=== PATIENT | female | born 1950 | race Caucasian/White ===

== ENCOUNTER → 2019-11-09 11:25 | Outpatient (CLI) | payer MEDICARE, SELFPAY ==
--- NOTE | ~2019-11-09 | XR_ITS ---
EXAMINATION: XR chest 2V DATE: 11/09/2019 12:08 INDICATION: Cough. TECHNIQUE: Frontal and lateral views of the chest were obtained. COMPARISON: Chest 2 views 03/14/2015 FINDINGS: The chest demonstrates clear lungs without pneumonia, pleural effusion, or pneumothorax. Th e heart size is normal. IMPRESSION: 1. No acute cardiopulmonary disease. Reviewed, dictated and finalized at location A. [place] DEPARTMENT MANAGER
== END ==
PROVIDERS: PCP Family Medicine; Visit Provider Nurse Practitioner Family
DX: F17.200 Nicotine dependence, unspecified, uncomplicated (principal); R05 Cough
CPT/HCPCS: 71046

== ENCOUNTER 2020-08-09 10:29 | Outpatient (CLI) | payer MEDICARE, SELFPAY ==
--- NOTE | ~2020-08-09 | XR_ITS ---
EXAMINATION: XR chest 2V 08/09/2020 11:07 INDICATION: Cough PROCEDURE: 2 view chest COMPARISON: 11/09/2019 FINDINGS: The lungs are clear. The cardiomediastinal silhouette is within normal limits. There are no pleural effusions. There is no pneumothorax suspected. IMPRESSION: 1: NO ACUTE CARDIOPULMONARY DISEASE. Reviewed, dictated and finalized at location B. FITTER
--- NOTE | 2020-08-09 10:50 | ECG_ITS ---
Measurements Intervals [place] Rate: 74 P: 71 PA: 135 QRS: 66 QRSD: 87 T: 58 QT: 365 QTc: 406 Interpretive Statements SINUS RHYTHM NORMAL ECG Electronically Signed On 08-09-2020 10:53:55 SAMPLES AND REPAIRS PREPARER by Valentin Little D.O.
== END 2020-08-09 10:30 | disposition home or self-care (01) ==
PROVIDERS: PCP Family Medicine; Visit Provider Nurse Practitioner Family
DX: R06.02 Shortness of breath (principal); R94.6 Abnormal results of thyroid function studies; R05 Cough; I10 Essential (primary) hypertension; R79.89 Other specified abnormal findings of blood chemistry
CPT/HCPCS: 36415; 71046; 84439; 84443; 93005

== ENCOUNTER 2020-09-12 10:49 | Outpatient (CLI) | payer MEDICARE, SELFPAY ==
--- NOTE | ~2020-09-12 | XR_ITS ---
EXAMINATION: XR chest 2V 09/12/2020 11:05 INDICATION: Cough PROCEDURE: 2 view chest COMPARISON: Comparison to multiple prior studies sequentially, with oldest reviewed study dated 05/2015. FINDINGS: The lungs are clear. The cardiomediastinal silhouette is within normal limits. There are no pleural effusions. There is no pneumothorax suspected. The lungs are hyperinflated which is consistent with, but not diagnostic of chronic obstructive pulmo nary disease. IMPRESSION: 1: NO ACUTE CARDIOPULMONARY DISEASE. Reviewed, dictated and finalized at location A. SHOP MANAGER
== END 2020-09-12 10:50 | disposition home or self-care (01) ==
PROVIDERS: PCP Family Medicine; Visit Provider Nurse Practitioner Family
DX: R05 Cough (principal)
CPT/HCPCS: 71046

== ENCOUNTER 2020-09-24 12:35 | Outpatient (CLI) | payer MEDICARE, SELFPAY ==
--- NOTE | 2020-09-24 12:54 | ECHO_ITS ---
Patient Info Name: Tu Rojas Age: 69 years : 1950 Gender: Female Ht: 65 in Wt: 160 lbs BSA: 1.84 m2 BP: 143 / 82 mmHg Technical Quality: Fair Exam Date: 09/24/2020 1:07 PM Exam Location: [facility] Patient Status: Outpatient Admit Date: 09/24/2020 Staff Ordering Physician: Clarice Sarah NP Railroad Brakeman: Gely Kang RDCS Attending Provider: Clarice Sarah NP Referring Physician: Tyrel KNAPP; Exam Type: CA echo doppler color flow Study Info Indications I10 - Essential (primary) hypertension Complete two-dimensional, color flow and Doppler transthoracic echocardiogram is performed. Summary 1. Complete two-dimensional, color flow and Doppler transthoracic echocardiogram is performed. 2. Left ventricular chamber dimension is normal. 3. Left ventricular systolic function is normal, estimated at 60-65%. 4. The left ventricular diastolic function is normal. 5. E/e' 10 is mildly elevated. 6. There is trace mitral valve regurgitation. 7. No pulmonary hypertension, estimated pulmonary arterial systolic pressure is 28 mmHg. Left Ventricle E/e' 10 is mildly elevated. Left ventricular chamber dimension is normal. Left ventricular systolic function is normal, estimated at 60-65%. The left ventricular diastolic function is normal. Right Ventricle Right ventricular chamber dimension is normal. Right ventricular systolic function is normal. Left Atria Left atrial chamber dimension is normal. Right Atria Right atrial chamber dimension is normal. Aortic Valve The aortic valve is trileaflet. There is no aortic valve stenosis. There is no aortic valve regurgitation. Pulmonic Valve There is no pulmonic regurgitation. Mitral Valve There is no mitral valve stenosis. There is trace mitral valve regurgitation. Tricuspid Valve There is no tricuspid valve regurgitation. No pulmonary hypertension, estimated pulmonary arterial systolic pressure is 28 mmHg. Pericardium/Pleural There is no pericardial effusion. Inferior Vena Cava Normal inferior vena cava with >50% collapse upon inspiration consistent with normal right atrial pressure, 5 mmHg. Aorta The aortic root size at the sinus of Valsalva is normal. Left Ventricular Outflow Tract Name Value Normal LVOT 2D LVOT Diameter 1.9 cm LVOT Doppler LVOT Peak Gradient 4 mmHg LVOT Mean Gradient 2 mmHg LVOT VTI 23 cm LVOT VTI/AV VTI Ratio 0.8 LVOT Stroke Volume 67 ml LVOT CO 3.5 l/min LVOT CI 1.9 l/min/m2 Pulmonic Valve Name Value Normal RVOT Doppler RVOT Peak Gradient 1 mmHg PV Doppler
--- NOTE | 2020-09-25 12:03 | WPDPFTINT ---
PFT Interpretation This is a pulmonary function test with pre and post-bronchodilator spirometry, plethysmography and diffusing capacity. The test was performed and results interpreted in accordance with the 2019 and 2005 ATS/ERS Task Force guidelines respectively using the Ponce/Jeanine reference equations. Findings: Spirometry: there is decreased maximal expiratory airflow at all lung volumes with a concave expiratory flow tracing. The pre bronchodilator FVC is 2.29 L, 76% predicted. The pre bronchodilator FEV1 is 1.09 L, 50% predicted. The FEV1: FVC ratio is 48%. The post bronchodilator FVC is 2.67 L, representing a 17% increase. The post bronchodilator FEV1 is 1.36 L, representing a 25% increase. Plethysmography: The total lung capacity is 5.72 L, 114% predicted. The functional residual capacity is 4.07 L, 145% predicted. The residual volume is 3.28 L, 165% predicted. Diffusing capacity: The absolute diffusion capacity is 12.7, 62% predicted. The diffusing capacity corrected for alveolar volume is 3.90, 106% predicted. Impression: There is a moderately severe obstructive abnormality with significant improvement after inhaling a single dose of albuterol. The increase in residual volume is consistent with air trapping from an obstructive abnormality. Hyperinflation is present is demonstrated by the increase in functional residual capacity and is consistent with an obstructive abnormality. The absolute diffusing capacity is mildly decreased but normalizes when corrected for alveolar volume. There are no prior studies for comparison
== END 2020-09-24 12:36 | disposition home or self-care (01) ==
PROVIDERS: PCP Family Medicine; Visit Provider Nurse Practitioner Family
DX: R06.02 Shortness of breath (principal); I10 Essential (primary) hypertension; R05 Cough; R94.2 Abnormal results of pulmonary function studies
CPT/HCPCS: 93306; 94060; 94726; 94729

== ENCOUNTER 2020-11-07 08:14 | Outpatient (CLI) | payer MEDICARE, SELFPAY ==
--- NOTE | ~2020-11-07 | CT_ITS ---
EXAMINATION:CT lung screening DATE: 11/07/2020 09:03 INDICATION: Personal history of tobacco dependence. Smoker who quit less than 1 year ago with 47 pack year history. TECHNIQUE: Computed tomography (CT) of the chest was performed without intravenous contrast. Automate d exposure control and iterative reconstruction technique were employed. The dose-length product (DLP ) was 65.56 mGy-cm. COMPARISON: None. FINDINGS: There is severe emphysema. There is mild atelectasis in right lower lobe. There is a 3 mm n odule in right lower lobe. No pleural effusion. The heart size is normal. There are coronary artery c alcifications. No pericardial effusion. There is mild thoracic spondylosis. IMPRESSION: 1. Lung-RADS category 2: Benign appearance or behavior. Continue annual screening with noncontrast lo w-dose chest CT in 12 months. Reviewed, dictated and finalized at location A. DER BRAKE LINING IMPRESSION: 1. Lung-RADS category 2: Benign appearance or behavior. Continue annual screeni ng with noncontrast low-dose chest CT in 12 months.
[2020-11-07 08:10] VITALS: PULSE 92; O2SAT 96
[2020-11-07 08:30] VITALS: PULSE 88; O2SAT 97
== END 2020-11-07 08:15 | disposition home or self-care (01) ==
LOC: ANHPFT 08:25
PROVIDERS: PCP Family Medicine; Visit Provider Internal Medicine Pulmonary Disease
DX: J44.9 Chronic obstructive pulmonary disease, unspecified (principal); Z87.891 Personal history of nicotine dependence
CPT/HCPCS: 71271; 94618

== ENCOUNTER → 2020-12-28 00:57 | Outpatient (CLI) | payer MEDICARE, SELFPAY ==
[2020-12-28 20:53] LABS: SARS-CoV-2 RNA PCR Negative
== END ==
PROVIDERS: PCP Family Medicine; Visit Provider Internal Medicine Critical Care Medicine
DX: Z01.812 Encounter for preprocedural laboratory examination (principal); Z20.822 Contact with and (suspected) exposure to COVID-19
CPT/HCPCS: C9803; U0003; U0005

== ENCOUNTER 2020-12-31 10:28 | Outpatient (CLI) | payer MEDICARE, SELFPAY ==
--- NOTE | 2021-01-13 16:28 | WPDSLEEPSTUD ---
Sleep Study Date of Study: 12/31/20 Ordering Provider: Jcarlos Rosa MD Interpreting Physician: Daxa Rico MD Sleep Study Type: Split Polysomnogram Height: 1.73 m Weight: 75.75 kg Body Mass Index: 25.4 Neck Circumference (inches): 18.5 [place]: 4 Reason for Sleep Study Loud snoring Sleep History Tu Rojas is a 70 year old female with loud snoring. It is frequently loud enough that others complain about it. She frequently has trouble sleeping with a cold. She rarely wakes up gasping for breath at night and rarely has breathing problems at night observed by others. She does not sweat excessively at night or notice her heart pounding or beating irregularly night. She rarely falls asleep during the day, never involuntarily or while driving. She does not have loss of muscle tone with strong emotion. She does not have daytime difficulties due to excessive sleepiness. She does not feel paralyzed when waking or falling asleep and does not have vivid dreamlike scenes upon awakening or falling asleep. She does not feel afraid to go to sleep. She does not have nightmares. She rarely remembers her dreams. She occasionally has racing thoughts. She occasionally has feelings of sadness, depression and anxiety. She rarely has muscular tension. She rarely notices parts of her body jerking. She does not kick at night or have crawling or aching feelings in her legs at night. She really has any kind of leg pain at night. She does not have morning jaw pain and she does not grind her teeth during sleep. She occasionally has bothered by pain during the day. She is not awakened by pain during the night. She occasionally wakes up feeling stiff in the morning with sore achy muscles. She rarely wakes up with pain in the neck and spine. Normal bedtime is 11:30 p.m. falling asleep within 20 minutes typically waking twice at night. This is for a trip to the bathroom and then she is able to return to sleep in 5-10 minutes. She wakes the morning by 8:30 a.m.. The weekend schedule is the same. She does not typically take naps in the afternoon or evening. She feels better in the afternoon compared other times of day she frequently a rake ends feeling refreshed. She rarely has daytime sleepiness or memory or concentration problems. Habits: Quit tobacco Jul 2020 after 40 +years. Caffeine all day long. Alcohol 3 drinks per week. No recreational drugs. [facility] Past Medical History Medical History (Updated 01/13/21 @ 17:49 by Daxa Rico MD) BMI (body mass index) 20.0-29.9 BMI 28.0-28.9,adult COPD (chronic obstructive pulmonary disease) Hyperlipidemia Hypertension Hypothyroidism SOB (shortness of breath) on exertion Family History Family History Mother Family history of lymphoma Father Family history of malignant neoplasm of urinary bladder Sibling Bypass graft stenosis Aortic valve disorder Hypertension Social History Social History (Updated 12/04/20 @ 10:53 by Kate Claudio CMA) Smoking packs per day: 1 Smoking cigarettes per day: 20.0 Years smoked: 40 Smoking pack-years: 40.00 Smoking status: Former smoker Tobacco type: cigarettes Second hand tobacco smoke exposure: No Smoking end date: 07/15/20 Alcohol intake: current Substance use: never 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
[2021-01-13 17:52] VITALS: BMI 25.4
== END 2020-12-31 10:29 | disposition home or self-care (01) ==
LOC: ANHCSM 10:29
PROVIDERS: PCP Family Medicine; Visit Provider Internal Medicine Pulmonary Disease
DX: G47.10 Hypersomnia, unspecified (principal); G47.33 Obstructive sleep apnea (adult) (pediatric)
CPT/HCPCS: 95811

== ENCOUNTER 2021-12-15 09:55 | Outpatient (CLI) | payer MEDICARE, SELFPAY ==
--- NOTE | ~2021-12-15 | CT_ITS ---
EXAMINATION:CT lung screening DATE: 12/15/2021 10:15 INDICATION: Personal history of nicotine dependence. Smoker who quit 1 year ago with 40 pack year his tory. TECHNIQUE: Computed tomography (CT) of the chest was performed without intravenous contrast. Automate d exposure control and iterative reconstruction technique were employed. The dose-length product (DLP ) was 79.04 mGy-cm. COMPARISON: Chest CT 11/07/2020 FINDINGS: There is mild scarring at the lung apices. There is moderate emphysema. There is a 3 mm nod ule in left upper lobe. No pleural effusion. The heart size is normal. No pericardial effusion. There is a small sliding hiatal hernia. There is mild thoracic spondylosis. IMPRESSION: 1. Lung-RADS category 2: Benign appearance or behavior. Continue annual screening with noncontrast lo w-dose chest CT in 12 months. Reviewed, dictated and finalized at location A. IMPRESSION: 1. Lung-RADS category 2: Benign appearance or behavior. Continue annual screeni ng with noncontrast low-dose chest CT in 12 months.
== END 2021-12-15 09:56 | disposition home or self-care (01) ==
LOC: ANHIMG 09:58
PROVIDERS: PCP Family Medicine; Visit Provider Internal Medicine Pulmonary Disease
DX: Z12.2 Encounter for screening for malignant neoplasm of respiratory organs (principal); Z87.891 Personal history of nicotine dependence
CPT/HCPCS: 71271

== ENCOUNTER 2022-03-06 09:43 | Outpatient (CLI) | payer MEDICARE, SELFPAY ==
[2022-03-06 10:27] LABS: Basophils Absolute Auto 0.1 K/mm3 (0.0-0.1); Basophils Percent Auto 0.6 % (0.2-1.2); Eosinophils Absolute Auto 0.2 K/mm3 (0-0.3); Hemoglobin 14.8 g/dL (12.0-15.0); Immature Granulocyte Absolute 0.03 K/mm3 (0.00-0.031); Immature Granulocyte Percent A 0.3 % (0-0.5); Lymphocytes Absolute Auto 2.48 K/mm3 (0.9-3.2); Lymphocytes Percent Auto 28.8 % (18.3-44.2); Mean Corpuscular HGB Conc 33.6 g/dl (32-36); Mean Corpuscular Hemoglobin 29.7 pg (26-34); Mean Corpuscular Volume 88.2 fl (80-100); Mean Platelet Volume 11.2 fl (7.4-10.4); Monocytes Absolute Auto 0.6 K/mm3 (0.1-0.6); Monocytes Percent Auto 6.5 % (2.6-8.5); Neutrophils Absolute Auto 5.3 K/mm3 (1.3-6.7); Neutrophils Percent Auto 61.8 % (45.5-73.1); Platelet Count Result 252 k/mm3 (150-375); Red Blood Count 4.99 M/mm3 (4.2-5.4); Red Cell Distribution Width 13.2 % (11.5-14.5); White Blood Count 8.6 K/mm3 (4.5-10.0)
[2022-03-06 10:48] LABS: Alanine Aminotransferase 24 U/L (6-35); Albumin Level 4.5 g/dL (3.5-5.1); Alkaline Phosphatase 88 U/L (38-126); Anion Gap 7 mmol/L (8-16); Aspartate Amino Transferase 29 U/L (14-36); Bilirubin,Total 0.7 mg/dL (0.2-1.3); Blood Urea Nitrogen 12 mg/dL (7-17); Carbon Dioxide 26 mmol/L (22-30); Chloride 106 mmol/L (98-107); Cholesterol 136 mg/dL (0-200); Estimated Glomerular Filt Rate > 60; Glucose 94 mg/dL (65-110); HDL Direct 54 mg/dL; Potassium 4.5 mmol/L (3.4-5.0); Sodium 139 mmol/L (137-145); Triglycerides 80 mg/dL (<150)
[2022-03-06 10:54] LABS: LDL Cholesterol Direct 53 mg/dL
== END 2022-03-06 09:44 | disposition home or self-care (01) ==
LOC: ANHLAB 09:51
PROVIDERS: PCP Family Medicine; Visit Provider Physician Assistant Medical
DX: E03.9 Hypothyroidism, unspecified (principal); E78.5 Hyperlipidemia, unspecified; I10 Essential (primary) hypertension
CPT/HCPCS: 36415; 80053; 80061; 84443; 85025

== ENCOUNTER 2022-03-25 08:08 | Outpatient (CLI) | payer MEDICARE, SELFPAY ==
--- NOTE | ~2022-03-25 | MM_ITS ---
EXAMINATION: MM screening svetlana BI w key HISTORY: Screening TECHNIQUE: Craniocaudal and mediolateral oblique 3-D tomosynthesis images were obtained and synthetic 2-D images were generated. CAD analysis was submitted and interpreted. COMPARISON: No prior mammogram is available for comparison at this institution. BREAST PARENCHYMAL COMPOSITION: There are scattered areas of fibroglandular density. FINDINGS: There is no evidence of suspicious mass, calcification, or architectural distortion to sugg est malignancy in either breast. There has been no suspicious interval change. IMPRESSION: 1. No mammographic evidence of malignancy. 2. Recommend routine screening mammography in one year. BI-RADS Category 1: Negative Reviewed, dictated and finalized at location L.
== END 2022-03-25 08:09 | disposition home or self-care (01) ==
LOC: ANHIMG 08:10
PROVIDERS: PCP Family Medicine; Visit Provider Family Medicine
DX: Z12.31 Encounter for screening mammogram for malignant neoplasm of breast (principal)
CPT/HCPCS: 77063; 77067

== ENCOUNTER 2022-04-20 05:09 | Day surgery (SDC) | payer MEDICARE, SELFPAY ==
[2022-04-02 12:44] VITALS: BMI 28.4
--- NOTE | 2022-04-19 10:26 | PM.HPGS ---
History of Present Illness History of Present Illness Consent: Risks, benefits, and alternatives have been discussed and questions answered. Patient agrees to proceed with procedure. Chief complaint: neoplasm screening Narrative: Tu Rojas is a 71 year old female Referred for colon cancer screening. This is her 1st colonoscopy Review of Systems Review of Systems: All systems reviewed & are unremarkable except as noted in HPI and below PMFSH Past Medical History Medical History BMI (body mass index) 20.0-29.9 BMI 28.0-28.9,adult BMI 30.0-30.9,adult COPD (chronic obstructive pulmonary disease) Hyperlipidemia Hypertension Hypothyroidism SOB (shortness of breath) on exertion Family History Family History Mother Family history of lymphoma Father Family history of malignant neoplasm of urinary bladder Sibling Bypass graft stenosis Aortic valve disorder Hypertension Social History Social History Smoking packs per day: 1 Smoking cigarettes per day: 20.0 Years smoked: 40 Smoking pack-years: 40.00 Smoking status: Never smoker Tobacco type: cigarettes Second hand tobacco smoke exposure: No Smoking end date: 07/15/20 Alcohol intake: current Drinks per week: 1 Substance use: never Substance use type: does not use Living arrangements: alone 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 Gender identity (if verbalized by the patient): Female Spiritual care concerns: No Meds Home Medications and Allergies Home Medications Medication Instructions Recorded Confirmed Type multivitamin,tx-minerals 1 cap PO DAILY 10/30/20 04/20/22 History (Multi-Vitamin HP/Minerals capsule) albuterol sulfate 90 mcg/actuation 1 - 2 puff inhalation Q4-6H PRN 01/27/22 04/20/22 Rx aerosol inhaler shortness of breath or wheezing #8.5 grams rosuvastatin 20 mg tablet See Rx Instructions .Route 02/13/22 04/20/22 Rx .COMPLEX #90 tabs valsartan 160 mg tablet See Rx Instructions .Route 02/13/22 04/20/22 Rx .COMPLEX #90 tabs acetaminophen 325 mg capsule 500 mg PO Q6H PRN Pain 02/23/22 04/20/22 History (Tylenol) umeclidinium 62.5 mcg-vilanterol See Rx Instructions .Route 03/10/22 04/20/22 Rx 25 mcg/actuation powdr for .COMPLEX #60 ea inhalation (Anoro Ellipta) levothyroxine 25 mcg tablet See Rx Instructions .Route 04/01/22 04/20/22 Rx .COMPLEX #30 tabs ibuprofen 400 mg tablet 200 mg PO TID PRN pain 04/02/22 04/20/22 History Allergies Allergy/AdvReac Type Severity Reaction Status Date / Time Penicillins Allergy Unknown Rash Verified 04/20/22 08:35 Exam Resp: Auscultation: clear to auscultation bilaterally Cardio: Rate: regular rate Rhythm: regular rhythm GI: GI Palp: Yes Soft to palpation and No Tenderness to palpation present (GI) Assessment and Plan Assessment and plan (1) Screening for colon cancer: Code(s): Z12.11 - Encounter for screening for malignant neoplasm of colon Status: Acute Assessment and Plan: Colonoscopy with possible biopsy or polypectomy or cautery or injection of substances.
--- NOTE | 2022-04-20 08:18 | WPDANESEPPF ---
Anes - Initial Pre Proc Eval Procedure: Operation Date: 04/20/22 09:30 Proposed Procedures p Screening Colonoscopy - Vahe Jimenez MD Date/Time: 04/20/22 08:18 Surgeon: Vahe Jimenez MD Pre Op Diagnosis: neoplasm screening Patient Data Age: 71 Gender: F Height: 1.65 m Weight: 77.5 kg Allergies Allergy/AdvReac Type Severity Reaction Status Date / Time Penicillins Allergy Unknown Rash Verified 04/20/22 08:35 Home Medications Medication Instructions Recorded Confirmed Type multivitamin,tx-minerals 1 cap PO DAILY 10/30/20 04/20/22 History (Multi-Vitamin HP/Minerals capsule) albuterol sulfate 90 mcg/actuation 1 - 2 puff inhalation Q4-6H PRN 01/27/22 04/20/22 Rx aerosol inhaler shortness of breath or wheezing #8.5 grams rosuvastatin 20 mg tablet See Rx Instructions .Route 02/13/22 04/20/22 Rx .COMPLEX #90 tabs valsartan 160 mg tablet See Rx Instructions .Route 02/13/22 04/20/22 Rx .COMPLEX #90 tabs acetaminophen 325 mg capsule 500 mg PO Q6H PRN Pain 02/23/22 04/20/22 History (Tylenol) umeclidinium 62.5 mcg-vilanterol See Rx Instructions .Route 03/10/22 04/20/22 Rx 25 mcg/actuation powdr for .COMPLEX #60 ea inhalation (Anoro Ellipta) levothyroxine 25 mcg tablet See Rx Instructions .Route 04/01/22 04/20/22 Rx .COMPLEX #30 tabs ibuprofen 400 mg tablet 200 mg PO TID PRN pain 04/02/22 04/20/22 History Patient hx anesthesia problems: none Family hx anesthesia problems: none Results Review: All pre-operative results and documents have been reviewed as part of the pre-operative evaluation. [facility] Past Medical History Medical History BMI (body mass index) 20.0-29.9 BMI 28.0-28.9,adult BMI 30.0-30.9,adult COPD (chronic obstructive pulmonary disease) Hyperlipidemia Hypertension Hypothyroidism SOB (shortness of breath) on exertion Family History Family History Mother Family history of lymphoma Father Family history of malignant neoplasm of urinary bladder Sibling Bypass graft stenosis Aortic valve disorder Hypertension Social History Social History Smoking packs per day: 1 Smoking cigarettes per day: 20.0 Years smoked: 40 Smoking pack-years: 40.00 Smoking status: Never smoker Tobacco type: cigarettes Second hand tobacco smoke exposure: No Smoking end date: 07/15/20 Alcohol intake: current Drinks per week: 1 Substance use: never Substance use type: does not use Living arrangements: alone 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 Informed Consent: The patient's anesthetic plan and its attendant risks and benefits were discussed with the patient/family/POA. Questions were solicited and answers provided to the satisfaction of the patient/family/POA.
[2022-04-20 08:25] VITALS: BP 144/74; PULSE 69; RESP 18; TEMP 36.9; O2SAT 98; BMI 28.3
[2022-04-20] MEDS: LACTATED RINGERS 1,000 ML 150 ML IV CONT (08:48)
[2022-04-20 09:31] VITALS: BP 127/68; PULSE 61; RESP 12; O2SAT 96
[2022-04-20 09:41] VITALS: BP 136/77; PULSE 55; RESP 17; O2SAT 96
[2022-04-20 09:51] VITALS: BP 123/64; PULSE 54; RESP 17; O2SAT 100
== END 2022-04-20 09:55 | disposition home or self-care (01) ==
PROVIDERS: PCP Family Medicine; Visit Provider Internal Medicine Gastroenterology
PROC: 0DJD8ZZ Inspection of Lower Intestinal Tract, Via Natural or Artificial Opening Endoscopic (ICD-10-PCS; CPT 45378; principal; 2022-04-20 09:30)
DX: Z12.11 Encounter for screening for malignant neoplasm of colon (principal); K63.5 Polyp of colon; K64.8 Other hemorrhoids; I10 Essential (primary) hypertension; E78.5 Hyperlipidemia, unspecified; E03.9 Hypothyroidism, unspecified; J44.9 Chronic obstructive pulmonary disease, unspecified; Z79.51 Long term (current) use of inhaled steroids
CPT/HCPCS: 45380; 45385; 88305; J2704; J7120

== ENCOUNTER 2022-05-19 09:06 | Outpatient (CLI) | payer MEDICARE, SELFPAY ==
--- NOTE | ~2022-05-19 | DEXA_ITS ---
Bone Density Report Name: WILBUR TRINIDAD Age: 71 Sex: Female Ethnicity: White Date of : 1950 Indication: postmenopausal; screening for osteoporosis; prior fracture; Referring Provider: KAY GARCIA Study: Bone densitometry was performed. Exam Date: May 19, 2022 Accession number: [id number] Bone Density: Region BMD T-score Z-score Classification AP Spine(L1-L4) 0.676 -3.4 -1.3 Osteoporosis Femoral Neck (Left) 0.572 -2.5 -0.7 Osteoporosis Total Hip (Left) 0.754 -1.5 -0.1 Osteopenia Femoral Neck (Right) 0.575 -2.5 -0.7 Osteoporosis Total Hip (Right) 0.726 -1.8 -0.3 Osteopenia Total Hip Mean 0.740 -1.7 -0.2 Osteopenia World Health Organization criteria for BMD impression classify patients as: Normal (T-score at or above -1.0), Osteopenia (T-score between -1.0 and -2.5), or Osteoporosis (T-score at or below -2.5). 10-year Fracture Risk: FRAX not reported because: Some T-score for Spine Total or Hip Total or Femoral Neck at or below -2.5 Clinical Information Provided by Patient: Has had a low trauma fracture Patient maximum height was 65 Menopause Age: 52 No regular weight bearing exercise Drinks caffeinated beverages Onset of menses at age 13 Number of children 3 Impression: The patient has established osteoporosis, based on the Total Spine T-score and the existence of a prior fracture. The patient has risk factors, including: previous fracture. Discussion: HIGH RISK OF FRACTURE. BONE DENSITY IS UNDESIRABLY LOW AT ONE OR MORE SKELETAL SITES, CONSISTENT WITH POSTMENOPAUSAL OSTEOPOROSIS. This patient's lowest T-score, in a patient who has previously fractured, meets the World Health Organization's (WHO) criteria for severe osteoporosis. In untreated patients, the risk of osteoporotic fracture increases approximately two-fold for each 1.0 SD decrease in T-score. Low bone density is not the only risk factor for fracture; also consider factors such as patient's age, frailty or poor health, risk of falling, risk of injury, previous osteoporotic fracture, family history of osteoporosis, cigarette smoking, low body weight, etc. Not everyone with low bone mineral density has osteoporosis; osteomalacia and other metabolic bone disorders should also be considered. Patients who have osteoporosis should be evaluated for specific diseases and conditions (secondary causes) that may cause or contribute to bone loss. The [place] [employer]ocrinologists (AACE) and National Osteoporosis Foundation (NOF) recommend pharmacologic intervention for all postmenopausal women whose T-score is in this range. The patient should follow a healthful lifestyle (good nutrition with adequate calcium and vitamin D, and appropriate weight-bearing exercise). Follow-Up: Consider a repeat BMD and Vertebral
== END 2022-05-19 09:07 | disposition home or self-care (01) ==
LOC: ANHIMG 09:07
PROVIDERS: PCP Family Medicine; Visit Provider Physician Assistant Medical
DX: Z78.0 Asymptomatic menopausal state (principal); M85.89 Other specified disorders of bone density and structure, multiple sites; M81.0 Age-related osteoporosis without current pathological fracture
CPT/HCPCS: 77080

== ENCOUNTER 2022-12-16 10:49 | Outpatient (CLI) | payer MEDICARE, SELFPAY ==
--- NOTE | ~2022-12-16 | CT_ITS ---
EXAMINATION:CT lung screening DATE: 12/16/2022 11:04 INDICATION: Lung cancer screening. Smoker who quit 2 years ago with 40 pack year history. TECHNIQUE: Computed tomography (CT) of the chest was performed without intravenous contrast. Automate d exposure control and iterative reconstruction technique were employed. The dose-length product (DLP ) was 81.59 mGy-cm. COMPARISON: Chest CT 12/15/2021 FINDINGS: There is mild scarring at the lung apices. There is moderate emphysema. There is a new 5 mm nodule in left upper lobe. There is a 3 mm nodule in left upper lobe. There is mild atelectasis in t he inferior lungs. No pleural effusion. The heart size is normal. No pericardial effusion. There is a small sliding hiatal hernia. There is mild thoracic spondylosis. IMPRESSION: 1. Lung-RADS category 3: Probably benign. Further evaluation is recommended with noncontrast low-dose chest CT in 6 months. Reviewed, dictated and finalized at location A. IMPRESSION: 1. Lung-RADS category 3: Probably benign. Further evaluation is recommended wit h noncontrast low-dose chest CT in 6 months.
== END 2022-12-16 10:50 | disposition home or self-care (01) ==
PROVIDERS: PCP Family Medicine; Visit Provider Physician Assistant
DX: Z12.2 Encounter for screening for malignant neoplasm of respiratory organs (principal); Z87.891 Personal history of nicotine dependence
CPT/HCPCS: 71271

== ENCOUNTER 2023-01-28 12:56 | Outpatient (CLI) | payer MEDICARE, SELFPAY ==
[2023-01-28 13:15] LABS: Hematocrit 43.4 % (37.0-47.0); Hemoglobin 14.5 g/dL (12.0-15.0); Mean Corpuscular HGB Conc 33.4 g/dl (32-36); Mean Corpuscular Hemoglobin 30.1 pg (26-34); Mean Platelet Volume 10.3 fl (7.4-10.4); Platelet Count Result 254 k/mm3 (150-375); Red Blood Count 4.82 M/mm3 (4.2-5.4); Red Cell Distribution Width 13.2 % (11.5-14.5)
[2023-01-28 13:31] LABS: Alanine Aminotransferase 28 U/L (6-35); Albumin Level 4.4 g/dL (3.5-5.1); Alkaline Phosphatase 66 U/L (38-126); Anion Gap 4 mmol/L (8-16); Aspartate Amino Transferase 26 U/L (14-36); Bilirubin,Total 0.5 mg/dL (0.2-1.3); Blood Urea Nitrogen 13 mg/dL (7-17); Calcium 10.6 mg/dL (8.4-10.2); Carbon Dioxide 31 mmol/L (22-30); Chloride 106 mmol/L (98-107); Cholesterol 128 mg/dL (0-200); Creatine Kinase 84 U/L (30-135); Estimated Glomerular Filt Rate > 60; Glucose 91 mg/dL (65-110); HDL Direct 62 mg/dL; Magnesium 2.1 mg/dL (1.6-2.3); Potassium 4.5 mmol/L (3.4-5.0); Sodium 141 mmol/L (137-145); Triglycerides 65 mg/dL (<150)
[2023-01-28 13:42] LABS: LDL Cholesterol Direct 49 mg/dL
== END 2023-01-28 12:57 | disposition home or self-care (01) ==
PROVIDERS: PCP Family Medicine; Visit Provider Nurse Practitioner Family
DX: I10 Essential (primary) hypertension (principal); R06.02 Shortness of breath; M79.662 Pain in left lower leg; M79.661 Pain in right lower leg
CPT/HCPCS: 36415; 80053; 80061; 82550; 83735; 84443; 85027

== ENCOUNTER 2023-03-03 08:49 | Outpatient (CLI) | payer MEDICARE, SELFPAY ==
[2023-03-03 09:28] LABS: Anion Gap 5 mmol/L (8-16); Blood Urea Nitrogen 15 mg/dL (7-17); Calcium 10.3 mg/dL (8.4-10.2); Carbon Dioxide 30 mmol/L (22-30); Chloride 105 mmol/L (98-107); Estimated Glomerular Filt Rate > 60; Glucose 99 mg/dL (65-110); Potassium 4.2 mmol/L (3.4-5.0); Sodium 140 mmol/L (137-145)
== END 2023-03-03 08:50 | disposition home or self-care (01) ==
LOC: ANHLAB 08:50
PROVIDERS: PCP Family Medicine; Visit Provider Nurse Practitioner Family
DX: E83.52 Hypercalcemia (principal)
CPT/HCPCS: 36415; 80048

== ENCOUNTER 2023-06-16 09:15 | Outpatient (CLI) | payer MEDICARE, SELFPAY ==
--- NOTE | ~2023-06-16 | MM_ITS ---
EXAMINATION: MM screening svetlana BI w key HISTORY: Screening mammogram TECHNIQUE: Craniocaudal and mediolateral oblique 3-D tomosynthesis images were obtained and synthetic 2-D images were generated. Bilateral rotated lateral CC views. ...CAD analysis was submitted and int erpreted. COMPARISON: 03/25/2022 bilateral screening mammogram examination BREAST PARENCHYMAL COMPOSITION: There are scattered areas of fibroglandular density. FINDINGS: There is no evidence of suspicious mass, calcification, or architectural distortion to sugg est malignancy in either breast. There has been no suspicious interval change. IMPRESSION: 1. No mammographic evidence of malignancy. 2. Recommend routine screening mammography in one year. BI-RADS Category 1: Negative Reviewed, dictated and finalized at location A.
[2023-06-16 10:29] LABS: Anion Gap 5 mmol/L (8-16); Blood Urea Nitrogen 11 mg/dL (7-17); Calcium 10.7 mg/dL (8.4-10.2); Carbon Dioxide 29 mmol/L (22-30); Chloride 104 mmol/L (98-107); Estimated Glomerular Filt Rate > 60; Glucose 101 mg/dL (65-110); Potassium 3.6 mmol/L (3.4-5.0); Sodium 138 mmol/L (137-145)
== END 2023-06-16 09:16 | disposition home or self-care (01) ==
LOC: ANHIMG 09:17
PROVIDERS: PCP Family Medicine; Referring Provider Nurse Practitioner Family; Visit Provider Family Medicine
DX: Z12.31 Encounter for screening mammogram for malignant neoplasm of breast (principal); E83.52 Hypercalcemia
CPT/HCPCS: 36415; 77063; 77067; 80048

== ENCOUNTER 2023-06-29 13:25 | Outpatient (CLI) | payer MEDICARE, SELFPAY ==
--- NOTE | ~2023-06-29 | CT_ITS ---
EXAMINATION:CT diagnostic chest wo con DATE: 06/29/2023 14:24 INDICATION: Solitary pulmonary nodule. TECHNIQUE: Computed tomography (CT) of the chest was performed without intravenous contrast. Automate d exposure control and iterative reconstruction technique were employed. The dose-length product (DLP ) was 65.90 mGy-cm. COMPARISON: Chest CT 12/16/2022 FINDINGS: There is mild scarring at the lung apices. There is moderate emphysema. There is mild atele ctasis bilaterally. There are multiple nodules scattered in the lungs measuring up to 4 mm, some of w hich are new. No pleural effusion. The heart size is normal. No pericardial effusion. There is mild t horacic spondylosis. IMPRESSION: 1. Lung-RADS category 3: Probably benign. Further evaluation is recommended with noncontrast low-dose chest CT in 6 months. Reviewed, dictated and finalized at location E. IMPRESSION: 1. Lung-RADS category 3: Probably benign. Further evaluation is recommended wit h noncontrast low-dose chest CT in 6 months.
== END 2023-06-29 13:26 | disposition home or self-care (01) ==
PROVIDERS: PCP Family Medicine; Visit Provider Physician Assistant
DX: R91.1 Solitary pulmonary nodule (principal)
CPT/HCPCS: 71250

== ENCOUNTER 2023-07-08 10:04 | Outpatient (CLI) | payer MEDICARE, SELFPAY ==
--- NOTE | ~2023-07-08 | XR_ITS ---
XR hip RT 2V w AP pelvis DATE: 07/08/2023 10:34 INDICATION: Right hip pain for a year TECHNIQUE: AP pelvis. AP and lateral views of right hip. COMPARISON: None FINDINGS: There is moderate right hip osteoarthritis. Degenerative cyst formation at the superior rig ht acetabulum. Mild spurring of the right hip joint. The pubic symphysis and sacroiliac joints are intact. No pelvic fracture or bone destruction is detected. No fracture or dislocation, avascular necrosis or bone destruction of either hip is detected. IMPRESSION: Moderate right hip osteoarthritis Reviewed, dictated and finalized at location L.
[2023-07-08 12:52] LABS: Rheumatoid Factor < 12.0 IU/ML (<12)
[2023-07-10 13:14] LABS: Ionized Calcium 5.9 mg/dL (4.7-5.5)
[2023-07-11 12:49] LABS: ANA Cascade Screen Negative (Negative)
== END 2023-07-08 10:05 | disposition home or self-care (01) ==
PROVIDERS: PCP Family Medicine; Visit Provider Physician Assistant Medical
DX: E83.52 Hypercalcemia (principal); M79.10 Myalgia, unspecified site; Z82.69 Family history of other diseases of the musculoskeletal system and connective tissue; G89.29 Other chronic pain; M25.551 Pain in right hip; M16.11 Unilateral primary osteoarthritis, right hip
CPT/HCPCS: 36415; 73502; 82330; 83970; 86038; 86225; 86235; 86364; 86430

== ENCOUNTER 2023-10-25 08:33 | Outpatient (CLI) | payer MEDICARE, SELFPAY ==
--- NOTE | ~2023-10-25 | NM_ITS ---
EXAMINATION: NM parathyroid imaging w spect DATE: 10/25/2023 12:45 INDICATION: Hyperparathyroidism TECHNIQUE: T1 mCi Tc99m sestamibi (Cardiolite) was administered by intravenous route. Anterior images of the neck were obtained at 10 minutes and 2 hours. Additional 3 plane delayed SPECT images the nec k and upper chest were obtained. COMPARISON: None. FINDINGS: There is prominent asymmetry to the thyroid uptake on the immediate scintigrams, significantly higher in the right thyroid lobe which also appears larger in medial collateral dimension than the left thy roid lobe. There is a similar pattern of relatively higher activity at the right thyroid lobe relativ e to the left on the delayed scintigrams. The uptake has however significantly decreased in both lobe s when compared with the submandibular glands. No foci of peripherally higher persistent activity in the area of the thyroid or mediastinum to suggest parathyroid adenoma. IMPRESSION: 1: Larger and significantly greater degree of diffuse activity at the right thyroid lobe relative to the left, with activity in both lobes significantly decreasing to a significantly greater degree when compared with the submandibular glands on the delayed imaging. There is of indeterminate etiology as the bilateral globes appear relatively symmetric on the CT from 06/29/2023. Consider thyroid ultraso und for correlation. 2. No foci demonstrating a greater degree of activity retention to suggest parathyroid adenoma. Reviewed, dictated and finalized at location A. ME TAX RETURN PREPARER IMPRESSION: 1: Larger and significantly greater degree of diffuse activity at the right thy roid lobe relative to the left, with activity in both lobes significantly decre asing to a significantly greater degree when compared with the submandibular gl ands on the delayed imaging. There is of indeterminate etiology as the bilatera l globes appear relatively symmetric on the CT from 06/29/2023. Consider thyroi d ultrasound for correlation. 2. No foci demonstrating a greater degree of activity retention to suggest para thyroid adenoma.
[2023-10-25 10:07] LABS: Alanine Aminotransferase 31 U/L (6-35); Albumin Level 4.7 g/dL (3.5-5.1); Alkaline Phosphatase 116 U/L (38-126); Anion Gap 3 mmol/L (8-16); Aspartate Amino Transferase 31 U/L (14-36); Bilirubin,Total 0.7 mg/dL (0.2-1.3); Blood Urea Nitrogen 16 mg/dL (7-17); Calcium 11.9 mg/dL (8.4-10.2); Carbon Dioxide 30 mmol/L (22-30); Chloride 103 mmol/L (98-107); Estimated Glomerular Filt Rate > 60; Glucose 91 mg/dL (65-110); Magnesium 2.2 mg/dL (1.6-2.3); Phosphorus 2.9 mg/dL (2.5-4.5); Potassium 4.1 mmol/L (3.4-5.0); Sodium 136 mmol/L (137-145)
[2023-10-25 10:19] LABS: Parathyroid Intact 192.3 pg/mL (7.5-53.5)
[2023-10-25 10:31] LABS: Free T4 Free Thyroxine 0.99 ng/mL (0.78-2.19); Vitamin D 25 Hydroxy 53.7 ng/mL
[2023-10-27 15:19] LABS: Ionized Calcium 5.9 mg/dL (4.7-5.5)
== END 2023-10-25 08:34 | disposition home or self-care (01) ==
PROVIDERS: PCP Family Medicine; Visit Provider Internal Medicine
DX: E03.9 Hypothyroidism, unspecified (principal); M81.0 Age-related osteoporosis without current pathological fracture; R79.89 Other specified abnormal findings of blood chemistry; I10 Essential (primary) hypertension
CPT/HCPCS: 36415; 78071; 80053; 82306; 82330; 83735; 83970; 84100; 84439; 84443; A9500

== ENCOUNTER 2023-10-27 10:51 | Outpatient (CLI) | payer MEDICARE, SELFPAY ==
[2023-11-02 05:57] LABS: Total Volume 2800 mL; Urine Calcium 14.9 mg/dL
== END 2023-10-27 10:52 | disposition home or self-care (01) ==
PROVIDERS: PCP Family Medicine; Visit Provider Internal Medicine
DX: R79.89 Other specified abnormal findings of blood chemistry (principal); E03.9 Hypothyroidism, unspecified; M81.0 Age-related osteoporosis without current pathological fracture
CPT/HCPCS: 82340

== ENCOUNTER 2023-12-06 07:45 | Outpatient (CLI) | payer MEDICARE, SELFPAY ==
--- NOTE | ~2023-12-06 | DEXA_ITS ---
Bone Density Report Name: WILBUR TRINIDAD Age: 73 Sex: Female Ethnicity: White Date of : 1950 Indication: postmenopausal osteoporosis; hyperparathyroidism; asthma or emphysema; secondary osteoporosis; Referring Provider: KAY GARCIA Study: Bone densitometry was performed. Exam Date: December 06, 2023 Accession number: [id number] Bone Density: Region BMD T-score Z-score Classification AP Spine(L1-L4) 0.630 -3.8 -1.6 Osteoporosis Femoral Neck (Left) 0.602 -2.2 -0.4 Osteopenia Total Hip (Left) 0.713 -1.9 -0.3 Osteopenia Femoral Neck (Right) 0.550 -2.7 -0.8 Osteoporosis Total Hip (Right) 0.670 -2.2 -0.7 Osteopenia Total Hip Mean 0.692 -2.1 -0.5 Osteopenia World Health Organization criteria for BMD impression classify patients as: Normal (T-score at or above -1.0), Osteopenia (T-score between -1.0 and -2.5), or Osteoporosis (T-score at or below -2.5). 10-year Fracture Risk: FRAX not reported because: Some T-score for Spine Total or Hip Total or Femoral Neck at or below -2.5 Previous Exams: Region Exam Age BMD T-score BMD Change BMD Change Date g/cm2 vs Baseline vs Previous AP Spine (L1-L4) 12/06/2023 73 0.630 -3.8 -0.045 (-6.7%) -0.045 (-6.7%) 05/19/2022 71 0.676 -3.4 Total Hip(Left) 12/06/2023 73 0.713 -1.9 -0.040 (-5.4%) -0.040 (-5.4%) 05/19/2022 71 0.754 -1.5 Total Hip(Right) 12/06/2023 73 0.670 -2.2 -0.056 (-7.7%) -0.056 (-7.7%) 05/19/2022 71 0.726 -1.8 *Denotes significance at 95% confidence level, LSC for AP Spine = 0.022 g/cm2, LSC for Total Hip = 0.027 g/cm2 # Denotes dissimilar scan types or analysis methods Clinical Information Provided by Patient: Has secondary osteoporosis Has the following medical conditions: Asthma or Emphysema, Hyperparathyroidism Patient maximum height was 65.5 Menopause Age: 52 Drinks caffeinated beverages Onset of menses at age 14 Number of children 3 Impression: The patient has osteoporosis, based on the Total Spine T-score. No significant bone loss was observed. Discussion: INCREASED RISK OF FRACTURE. BONE DENSITY IS UNDESIRABLY LOW AT ONE OR MORE SKELETAL SITES, CONSISTENT WITH POSTMENOPAUSAL OSTEOPOROSIS. This patient's lowest T-score meets the World Health Organization's (WHO) criteria for osteoporosis at one or more sites (T-score -2.5 or below). In untreated patients, the risk of osteoporotic fracture increases approximately two-fold for each 1.0 SD decrease in
== END 2023-12-06 07:46 | disposition home or self-care (01) ==
LOC: ANHIMG 07:46
PROVIDERS: PCP Family Medicine; Visit Provider Physician Assistant Medical
DX: Z78.0 Asymptomatic menopausal state (principal); M85.89 Other specified disorders of bone density and structure, multiple sites; M81.0 Age-related osteoporosis without current pathological fracture
CPT/HCPCS: 77080

== ENCOUNTER 2023-12-27 13:38 | Outpatient (CLI) | payer MEDICARE, SELFPAY ==
--- NOTE | ~2023-12-27 | CT_ITS ---
EXAMINATION:CT diagnostic chest wo con DATE: 12/27/2023 13:50 INDICATION: Solitary pulmonary nodule. TECHNIQUE: Computed tomography (CT) of the chest was performed without intravenous contrast. Automate d exposure control and iterative reconstruction technique were employed. The dose-length product (DLP ) was 69.23 mGy-cm. COMPARISON: Chest CT 06/29/2023 FINDINGS: There is moderate emphysema. There are a few nodules in the lungs measuring up to 3 mm. The re is mild atelectasis bilaterally. No pleural effusion. The heart size is normal. No pericardial eff usion. There is a small sliding hiatal hernia. There is moderate thoracic spondylosis. There is mild chronic anterior wedging of multiple vertebral bodies. IMPRESSION: 1. Lung-RADS category 2: Benign appearance or behavior. Continue annual screening with noncontrast lo w-dose chest CT in 12 months. Reviewed, dictated and finalized at location E. IMPRESSION: 1. Lung-RADS category 2: Benign appearance or behavior. Continue annual screeni ng with noncontrast low-dose chest CT in 12 months.
== END 2023-12-27 13:39 | disposition home or self-care (01) ==
LOC: ANHIMG 13:38
PROVIDERS: PCP Family Medicine; Visit Provider Physician Assistant
DX: R91.1 Solitary pulmonary nodule (principal)
CPT/HCPCS: 71250

== ENCOUNTER 2024-02-04 10:30 | Outpatient (CLI) | payer MEDICARE, SELFPAY ==
[2024-02-04 11:09] LABS: Alanine Aminotransferase 25 U/L (6-35); Albumin Level 4.8 g/dL (3.5-5.1); Alkaline Phosphatase 143 U/L (38-126); Anion Gap 8 mmol/L (4-12); Aspartate Amino Transferase 27 U/L (14-36); Bilirubin,Total 0.7 mg/dL (0.2-1.3); Blood Urea Nitrogen 17 mg/dL (7-17); Calcium 9.5 mg/dL (8.4-10.2); Carbon Dioxide 25 mmol/L (22-30); Chloride 106 mmol/L (98-107); Estimated Glomerular Filt Rate > 60; Glucose 107 mg/dL (65-110); Phosphorus 4.5 mg/dL (2.5-4.5); Potassium 4.7 mmol/L (3.4-5.0); Sodium 139 mmol/L (137-145)
[2024-02-04 11:30] LABS: Parathyroid Intact 36.3 pg/mL (7.5-53.5)
[2024-02-04 11:53] LABS: Free T4 Free Thyroxine 0.97 ng/mL (0.78-2.19); Vitamin D 25 Hydroxy 41.6 ng/mL
== END 2024-02-04 10:31 | disposition home or self-care (01) ==
LOC: ANHLAB 10:34
PROVIDERS: PCP Family Medicine; Visit Provider Internal Medicine
DX: E21.0 Primary hyperparathyroidism (principal); I10 Essential (primary) hypertension; M81.0 Age-related osteoporosis without current pathological fracture; Z90.89 Acquired absence of other organs; Z98.890 Other specified postprocedural states
CPT/HCPCS: 36415; 80053; 82306; 82330; 83735; 83970; 84100; 84439; 84443

== ENCOUNTER 2024-07-13 13:20 | Outpatient (CLI) | payer MEDICARE, SELFPAY ==
--- NOTE | ~2024-07-13 | XR_ITS ---
EXAMINATION: XR lg joint inject/asp w image DATE: 07/13/2024 14:10 INDICATION: Right hip arthritis. TECHNIQUE: A time-out was performed to verify the patient's name, date of , and procedure to b e performed. The procedure including the risks, benefits, and alternatives was discussed with the pat ient. Risks discussed included bleeding and infection. The patient understood the risks and agreed to proceed. The skin overlying the right hip joint was prepped and draped in usual sterile fashion. A nesthetic was administered with 1% lidocaine subcutaneously. A 22 G needle was advanced under fluoro scopic guidance into the joint. Subsequently, injectate consisting of 2 mL 0.5% bupivacaine and 1 mL 80 mg/mL Depo-Medrol was instilled. The needle was removed and the entry site was cleaned and dresse d. There were no immediate complications. Fluoroscopy exposure time was 0.0 minutes. The total numbe r of images was 1. FINDINGS: Real-time fluoroscopy demonstrates the needle in the right hip joint. Patient's pain prior to procedure:2/10. Patient's pain following the procedure: 2/10. IMPRESSION: 1. Fluoroscopy guided right hip joint injection of local anesthetic and steroid. Reviewed, dictated and finalized at location A. MAKER IMPRESSION: 1. Fluoroscopy guided right hip joint injection of local anesthetic and steroid .
== END 2024-07-13 13:21 | disposition home or self-care (01) ==
PROVIDERS: PCP Family Medicine; Visit Provider Nurse Practitioner Family
DX: M16.11 Unilateral primary osteoarthritis, right hip (principal)
CPT/HCPCS: 20610; 77002; J1010

== ENCOUNTER 2024-08-15 13:00 | Outpatient (CLI) | payer MEDICARE, SELFPAY ==
[2024-08-15 14:42] LABS: Alanine Aminotransferase 27 U/L (6-35); Albumin Level 4.6 g/dL (3.5-5.1); Alkaline Phosphatase 74 U/L (38-126); Anion Gap 3 mmol/L (4-12); Aspartate Amino Transferase 30 U/L (14-36); Bilirubin,Total 0.7 mg/dL (0.2-1.3); Blood Urea Nitrogen 14 mg/dL (7-17); Calcium 9.1 mg/dL (8.4-10.2); Carbon Dioxide 29 mmol/L (22-30); Chloride 107 mmol/L (98-107); Estimated Glomerular Filt Rate > 60; Glucose 81 mg/dL (65-110); Magnesium 2.1 mg/dL (1.6-2.3); Phosphorus 3.3 mg/dL (2.5-4.5); Sodium 139 mmol/L (137-145)
[2024-08-15 14:52] LABS: Parathyroid Intact 28.6 pg/mL (14.5-75.2)
[2024-08-15 15:14] LABS: Free T4 Free Thyroxine 1.08 ng/dL (0.78-2.19); Vitamin D 25 Hydroxy 48.5 ng/mL
[2024-08-16 17:26] LABS: Cholesterol 144 mg/dL (0-200); HDL Direct 69 mg/dL; Triglycerides 65 mg/dL (<150)
[2024-08-16 17:30] LABS: LDL Cholesterol Direct 49 mg/dL
== END 2024-08-15 13:01 | disposition home or self-care (01) ==
LOC: ANHLAB 13:01
PROVIDERS: PCP Family Medicine; Visit Provider Internal Medicine
DX: E03.9 Hypothyroidism, unspecified (principal); E21.0 Primary hyperparathyroidism; R91.1 Solitary pulmonary nodule; E78.5 Hyperlipidemia, unspecified; Z98.890 Other specified postprocedural states
CPT/HCPCS: 36415; 80053; 80061; 82306; 83735; 83970; 84100; 84439; 84443; 84681

== ENCOUNTER 2024-08-22 12:49 | Outpatient (CLI) | payer MEDICARE, SELFPAY | END 2024-08-22 12:50 | disposition home or self-care (01) | LOC: ANHAUDASC 12:50 | PROVIDERS: PCP Family Medicine; Visit Provider Nurse Practitioner Family | DX: H90.3 Sensorineural hearing loss, bilateral (principal); H93.13 Tinnitus, bilateral | CPT/HCPCS: 92557; 92567 ==

== ENCOUNTER 2024-08-23 14:41 | Outpatient (CLI) | payer MEDICARE, SELFPAY ==
--- NOTE | ~2024-08-23 | MM_ITS ---
EXAMINATION: MM screening svetlana BI w key HISTORY: Screening TECHNIQUE: Craniocaudal and mediolateral oblique 3-D tomosynthesis images were obtained and synthetic 2-D images were generated. CAD analysis was submitted and interpreted. COMPARISON: Comparison to multiple prior studies sequentially, with oldest reviewed study dated 03/25. BREAST PARENCHYMAL COMPOSITION: Not dense: There are scattered areas of fibroglandular density. FINDINGS: There is no evidence of suspicious mass, calcification, or architectural distortion to sugg est malignancy in either breast. There has been no suspicious interval change. IMPRESSION: 1. No mammographic evidence of malignancy. 2. Recommend routine screening mammography in one year. BI-RADS Category 1: Negative Reviewed, dictated and finalized at location B. ER MECHANIC
== END 2024-08-23 14:42 | disposition home or self-care (01) ==
LOC: ANHIMG 14:42
PROVIDERS: PCP Family Medicine; Visit Provider Family Medicine
DX: Z12.31 Encounter for screening mammogram for malignant neoplasm of breast (principal)
CPT/HCPCS: 77063; 77067

== ENCOUNTER 2024-12-05 09:12 | Outpatient (CLI) | payer MEDICARE, SELFPAY ==
--- NOTE | ~2024-12-05 | CT_ITS ---
CT Scan of the Chest without Contrast: Clinical Indication: Lung cancer screening, nicotine dependence Technique: Contiguous sections were acquired throughout the chest without intravenous contrast. Dose reduction technique was used on this scan by utilizing automated exposure control and iterative recon struction technique. The dose-length product (DLP) was 67.01 mGy-cm. COMPARISON: 12/27/2023 Findings: There is no evidence of any significant mediastinal, hilar or axillary lymphadenopathy. The mediastin al soft tissues appear normal. There is no evidence of pleural or pericardial effusion. The lungs are clear. No pulmonary nodules or infiltrates are noted. Moderate to advanced emphysema pr esent. Images through the upper abdomen reveal no abnormalities. Impression: Lung RADS 1: Negative. 12 month follow-up screening CT advised. Moderate to advanced emphysema. Reviewed, dictated and finalized at [facility]. Impression: Lung RADS 1: Negative. 12 month follow-up screening CT advised. Moderate to advanced emphysema.
--- OUTSIDE RECORDS SUMMARY | 2024-12-05 09:45 | XMS_ITS | Clinical Summary ---
Author Organization [facility] Address [address] [place] [address] Care Team Providers Care Composing Room Machinist Apprentice Name Role Phone Curtis Alatorre MD Primary Care Provider [phone] Allergies Active Allergy Reactions Criticality Noted Date Comments Penicillins Itching,Rash,Hives,Swelling High 975 Active Problems Problem Noted Date Diagnosed Date Osteoporosis 09/19/2024 Encounters Date Type Department Care Team Description 11/20/2024 10:23 AM CDT - 11/20/2024 10:50 AM CDT Hospital Encounter [facility] [address] [place] [address] Lai Garcia MD Discharge Disposition: Home or Self Care (Routine Discharge) 11/20/2024 Travel 10/23/2024 10:49 AM HARP MAKER - 10/23/2024 11:30 AM HARP MAKER Hospital Encounter [facility] [id number] [place] [id number] Lai Garcia MD Discharge Disposition: Home or Self Care (Routine Discharge) 10/23/2024 Travel 09/26/2024 10:46 AM HARP MAKER - 09/26/2024 12:15 PM HARP MAKER Hospital Encounter [facility] [id number] [place] [address] Lai Garcia MD Discharge Disposition: Home or Self Care (Routine Discharge) 09/26/2024 Travel 09/19/2024 Orders Only [address] [address] Wild Simms MD 09/19/2024 Therapy Plan [facility] [address] [place] [address] Lai Garcia MD from Last 3 Months Social History Tobacco Use Types Packs/Day Years Used Date Smoking Tobacco: Never Assessed Comments Unknown Sex and Gender Information Value Date Recorded Sex Assigned at Female 09/26/2024 10:38 AM HARP MAKER Legal Sex Female 7:38 AM HARP MAKER Gender Identity Not on file Sexual Orientation Not on file Last Filed Vital Signs Vital Sign Reading Time Taken Comments Blood Pressure 167/68 10/23/2024 10:58 AM HARP MAKER Pulse 66 10/23/2024 10:58 AM HARP MAKER Temperature 36.6 C (97.9 F) 11/20/2024 10:30 AM CDT Respiratory Rate 16 10/23/2024 10:58 AM HARP MAKER Oxygen Saturation 100% 10/23/2024 10:58 AM HARP MAKER Inhaled Oxygen Concentration - - Weight - - Height - - Body Mass Index - - Plan of Treatment Upcoming Encounters Date Type Department Care Team (Late st Contact Info) Description 12/22/2024 10:30 AM CDT Appointment [facility] [address] [place] [address] Lai Garcia MD [address] [place] [address] Health Maintenance Due Date Last Done Comments Colorectal Cancer Screening Colonoscopy (10 Years) 1950 Hepatitis C 1970 DTaP, Tdap and Td Vaccines (1 - Tdap) 1971 Mammogram Screening 1992 Zoster Vaccines (1 of 2) 2002 Annual Medicare Wellness Visit 2017 Dexa Scan (General) 2017 Pneumococcal Vaccine: 65+ Years (1 of 1 - PCV) 2017 PHQ-2 (Physician [place]) 09/06/2024 COVID-19 Vaccine ( season) 2024 05/24/2024, 06/14/2023, 05/20/2022, Additional history exists RSV Immunization or 60+ Years (1 - 1-dose 75+ series) 2027 Meningococcal B Vaccine Aged Out No l onger eligible based on patient's age to complete this topic Meningococcal Vaccine Aged Out No julia vin eligible based on patient's age to complete this topic RSV Immunizations Under 20 Months Aged Out No longer eligible based on patient's age to complete this topic Insurance MEDICARE AETNA Care Teams Composing Room Machinist Apprentice Relationship Specialty Start Date End Date Curtis Alatorre MD [address] [place] [address] PCP - General 09/23/24
--- OUTSIDE RECORDS SUMMARY | 2024-12-05 09:45 | XMS_ITS | Clinical Summary ---
Author Organization [email or web address] Address [address] [place] [address] Care Team Providers Care Dust Sampler Name Role Phone Curtis Alatorre MD Primary Care Provider [phone] Source Comments [email or web address],non-owned Affiliates and Associated Physician Practices is amultiple site organization consisting of ambulatory clinics and hospital sitesin [place], [place], [place] and [place]. This disclosure is being madepursuant to the Care Everywhere program and may not contain all information available regarding this patient. Last updated 18.[email or web address] Allergies Active Allergy Reactions Criticality Noted Date Comments Penicillins Skin Reactions,Swelling,Urticaria High 0 09/06/1974 Medications * Be aware that medications may not be up to date on this document. Alwaysverify current medications with the patient. Medication Sig Dispensed Refills Start Date End Date Status levothyroxine (Synthroid) 25 MCG tablet Take 1 (one) tablet by mouth once daily 10/27/2023 Active rosuvastatin (Crestor) 20 MG tablet Take 1 (one) tablet by mouth once daily 11/12/2023 Active umeclidinium-vilant rob (Anoro Ellipta) 62.5-25 MCG/ACT inhaler Inhale 1 (one) puff by mouth as directed 10/18/2019 Active valsartan (Diovan) 160 MG tablet Take 1 (one) tablet by mouth once daily 11/11/2023 Active albuterol HFA (Proventil; Ventolin; Proair) 108 (90 Base) MCG/ACT inhaler Inhale 2 (two) puffs by mouth every 4 hours as needed for Shortness of Breath 01/26/2024 Active acetaminophen (Tylenol) 325 MG tablet Take 1 (one) tablet by mouth every 4 hours as needed for Fever or Pain Maximum allowable Acetaminophen amount = 4 Grams (4000 mg) / 24 hours. Active ibuprofen (Motrin) 200 MG tablet Take 1 (one) tablet by mouth every 6 hours as needed for Pain Active Active Problems Problem Noted Date Diagnosed Date Primary hyperparathyroidism 12/15/2023 Immunizations Name Administration Dates Next Due INFLUENZA VACCINE, ADJUVANTE D, QUADR. (FLUAD QUADRIVALENT; 65Y+) (AIIV4) 06/14/2023,05/08/2020 INFLUENZA VACCINE, CELL CULT URE, QUADR. (FLUCELVAX QUADRIVALENT; 6MO+), 0.5 ML (CCIIV4) 06/20/2019 INFLUENZA VACCINE, HIGH-DOSE , QUADR. (FLUZONE HIGH-DOSE QUADRIVALENT; 65Y+), 0.7 ML (HD-IIV4) 05/20/2022,05/19/2021 INFLUENZA VACCINE, HIGH-DOSE , TRIV. (FLUZONE HIGH-DOSE TRIVALENT; 65Y+) (HD-IIV3) 07/15/2018 Social History Tobacco Use Types Packs/Day Years Used Date Smoking Tobacco: Former Cigarettes 0.5 40 1 981 - 2020 Smokeless Tobacco: Never Tobacco Cessation:Counseling Given: Not Answered Alcohol Use Standard Drinks/Week Comments Not Currently 0 (1 standard drink = 0.6 oz pur e alcohol) AUDIT-C Answer Date Recorded Q1: How often do you have a drink containing alc ohol? Never 01/20/2024 Average Number of Drinks Not on file 024 Frequency of Binge Drinking Not on file 01/04 Sex and Gender Information Value Date Recorded Sex Assigned at Not on file Gender Identity Not on file Sexual Orientation Not on file Last Filed Vital Signs Vital Sign Reading Time Taken Comments Blood Pressure 138/84 05/19/2024 9:49 AM CDT Pulse 71 05/19/2024 9:49 AM CDT Temperature 36.4 C (97.6 F) 01/20/2024 11:30 AM CDT Respiratory Rate 10 01/20/2024 1:15 PM CDT Oxygen Saturation 93% 01/20/2024 1:15 PM CDT Inhaled Oxygen Concentration - - Weight 72.5 kg (159 lb 12.8 oz) 05/19/2024 9:49 AM CDT Height 165.1 cm (5' 5 ) 05/19/2024 9:49 AM CDT Body Mass Index 26.59 05/19/2024 9:49 AM CDT Plan of Treatment Health Maintenance Due Date Last Done Comments BONE DENSITY TESTING 1950 COLOGUARD (AGES 45-75) - COLON CA SCREENING 1950 COLON MONITORING 1950 COLONOSCOPY - COLON CA SCREENING 1950 CT COLONOGRAPHY - COLON CA SCREENING 1950 Colorectal Cancer Screening 1950 FIT - COLON CA SCREENING 1950 FLEX SIG - COLON CA SCREENING 1950 MAMMOGRAM 1950 MEDICARE AWV 12 MONTHS 1950 HEPATITIS C SCREENING 09/23/1970 DTAP/TDAP/TD VACCINES (1 - Tdap) 1971 LUNG CANCER SCREENING 2002 PNEUMOCOCCAL VACCINE 50+ (1 of 1 - PCV) 2002 ZOSTER VACCINE (1 of 2) 2002 COVID-19 VACCINE (6 - season) 2024 06/14/2023, 05/20/2022, 07/01/2021, Additional history exists INFLUENZA VACCINE (#1) 2024 , 05/20/2022, 05/19/2021, Additional history exists DEPRESSION SCREENING 09/06/2024 Respiratory Syncytial Virus (RSV) Vaccine Pt: or over 60 yrs (1 - 1-dose 75+ series) 2027 HEPATITIS B VACCINE Aged Out No longe r eligible based on patient's age to complete this topic HIB VACCINE Aged Out No longer eligi ble based on patient's age to complete this topic HPV VACCINE Aged Out No longer eligi ble based on patient's age to complete this topic MENINGOCOCCAL (Group B) VACCINE SHARED DECISION-MAKING Aged Out No longer eligible based on patient's age to complete this topic MENINGOCOCCAL GROUPS A/C/Y/W VACCINE Aged Out No longer eligible based on patient's age to complete this topic Advance Directives Documents on File Type Date Recorded Patient Wood Sash And Frame Carpenter Expl anation Adv Directive/Living Will/POA 01/20/2024 POA Care Teams Dust Sampler Relationship Specialty Start Date End Date Curtis Alatorre MD [address] [place] [id number] PCP - General 04/29/22
--- OUTSIDE RECORDS SUMMARY | 2024-12-05 09:46 | XMS_ITS | Encounter Summary ---
Author Organization [facility] Address [facility] [place] [address] Care Team Providers Care Skiver Machine Name Role Phone Curtis Alatorre MD Primary Care Provider [phone] Encounter Details Date Type Department Care Team (Late st Contact Info) Description 09/19/2024 Therapy Plan [facility] [address] [place], [place] [id number] Lai Garcia MD [address] [place] [address] Social History Tobacco Use Types Packs/Day Years Used Date Smoking Tobacco: Never Assessed Comments Unknown Sex and Gender Information Value Date Recorded Sex Assigned at Female 09/26/2024 10:38 AM HEAD BUCKER Legal Sex Female 7:38 AM HEAD BUCKER Gender Identity Not on file Sexual Orientation Not on file documented as of this encounter Plan of Treatment Upcoming Encounters Date Type Department Care Team (Late st Contact Info) Description 12/22/2024 10:30 AM CDT Appointment [facility] [address] [place] [address] Lai Garcia MD [address] [place] [address] documented as of this encounter Visit Diagnoses Diagnosis Osteoporosis- Primary Osteoporosis, unspecified documented in this encounter Care Teams Skiver Machine Relationship Specialty Start Date End Date Curtis Alatorre MD [address] [place] [address] PCP - General 09/23/24 documented as of this encounter
== END 2024-12-05 09:13 | disposition home or self-care (01) ==
PROVIDERS: PCP Family Medicine; Visit Provider Physician Assistant
DX: Z12.2 Encounter for screening for malignant neoplasm of respiratory organs (principal); Z87.891 Personal history of nicotine dependence; J43.9 Emphysema, unspecified
CPT/HCPCS: 71271

== ENCOUNTER 2024-12-12 12:43 | Outpatient (CLI) | payer MEDICARE, SELFPAY ==
[2024-12-12 13:28] LABS: Albumin Level 4.5 g/dL (3.5-5.1); Calcium 9.4 mg/dL (8.4-10.2)
--- OUTSIDE RECORDS SUMMARY | 2024-12-12 13:51 | XMS_ITS | Encounter Summary ---
Author Organization [facility] Address [facility] [place] [address] Care Team Providers Care Emergency Vehicle Operations Instructor Name Role Phone Curtis Alatorre MD Primary Care Provider [phone] Encounter Details Date Type Department Care Team (Late st Contact Info) Description 09/19/2024 Therapy Plan [facility] [address] [place], [place] [id number] Lai Garcia MD [address] [place] [address] Social History Tobacco Use Types Packs/Day Years Used Date Smoking Tobacco: Never Assessed Comments Unknown Sex and Gender Information Value Date Recorded Sex Assigned at Female 09/26/2024 10:38 AM SOLID WASTE DIVISION SUPERVISOR Legal Sex Female 7:38 AM SOLID WASTE DIVISION SUPERVISOR Gender Identity Not on file Sexual Orientation Not on file documented as of this encounter Plan of Treatment Upcoming Encounters Date Type Department Care Team (Late st Contact Info) Description 12/22/2024 10:30 AM CDT Appointment [facility] [address] [place] [address] Lai Garcia MD [address] [place] [address] documented as of this encounter Visit Diagnoses Diagnosis Osteoporosis- Primary Osteoporosis, unspecified documented in this encounter Care Teams Emergency Vehicle Operations Instructor Relationship Specialty Start Date End Date Curtis Alatorre MD [address] [address] PCP - General 09/23/24 documented as of this encounter
--- OUTSIDE RECORDS SUMMARY | 2024-12-12 13:51 | XMS_ITS | Clinical Summary ---
Author Organization [facility] Address [address] [place] [address] Care Team Providers Care Parts Clerk Name Role Phone Curtis Alatorre MD Primary Care Provider [phone] Source Comments [facility],non-owned Affiliates and Associated Physician Practices is amultiple site organization consisting of ambulatory clinics and hospital sitesin [place], [place], [place] and [place]. This disclosure is being madepursuant to the Care Everywhere program and may not contain all information available regarding this patient. Last updated 18.[facility] Allergies Active Allergy Reactions Criticality Noted Date [...] Documents on File Type Date Recorded Patient Assistant Offset Press Operator Expl anation Adv Directive/Living Will/POA 01/20/2024 POA Care Teams Parts Clerk Relationship Specialty Start Date End Date Curtis Alatorre MD [address] [place] [phone] PCP - General 04/29/22
--- OUTSIDE RECORDS SUMMARY | 2024-12-12 13:51 | XMS_ITS | Clinical Summary ---
Author Organization [facility] Address [address] [place] [address] Care Team Providers Care Helmet Coverer Name Role Phone Curtis Alatorre MD Primary Care Provider [phone] Allergies Active Allergy Reactions Criticality Noted Date Comments Penicillins Itching,Rash,Hives,Swelling High 975 Active Problems Problem Noted Date Diagnosed Date Osteoporosis 09/19/2024 Encounters Date Type Department Care Team Description 11/20/2024 10:23 AM CDT - 11/20/2024 10:50 AM CDT Hospital Encounter [facility] [address] [place] [address] Lai Garcia MD Discharge Disposition: Home or Self Care (Routine Discharge) 11/20/2024 Travel 10/23/2024 10:49 AM PROGRAM FACILITATOR - 10/23/2024 11:30 AM PROGRAM FACILITATOR Hospital Encounter [facility] [id number] [place] [id number] Lai Garcia MD Discharge Disposition: Home or Self Care (Routine Discharge) 10/23/2024 Travel 09/26/2024 10:46 AM PROGRAM FACILITATOR - 09/26/2024 12:15 PM PROGRAM FACILITATOR Hospital Encounter [facility] [id number] [place] [id number] Lai Garcia MD Discharge Disposition: Home or Self Care (Routine Discharge) 09/26/2024 Travel 09/19/2024 Orders Only [address] [address] Wild Simms MD 09/19/2024 Therapy Plan [facility] [address] [place] [address] Lai Garcia MD from Last 3 Months Social History Tobacco Use Types Packs/Day Years Used Date Smoking Tobacco: Never Assessed Comments Unknown Sex and Gender Information Value Date Recorded Sex Assigned at Female 09/26/2024 10:38 AM PROGRAM FACILITATOR Legal Sex Female 7:38 AM PROGRAM FACILITATOR Gender Identity Not on file Sexual Orientation Not on file Last Filed Vital Signs Vital Sign Reading Time Taken Comments Blood Pressure 167/68 10/23/2024 10:58 AM PROGRAM FACILITATOR Pulse 66 10/23/2024 10:58 AM PROGRAM FACILITATOR Temperature 36.6 C (97.9 F) 11/20/2024 10:30 AM CDT Respiratory Rate 16 10/23/2024 10:58 AM PROGRAM FACILITATOR Oxygen Saturation 100% 10/23/2024 10:58 AM PROGRAM FACILITATOR Inhaled Oxygen Concentration - - Weight - - Height - - Body Mass Index - - Plan of Treatment Upcoming Encounters Date Type Department Care Team (Late st Contact Info) Description 12/22/2024 10:30 AM CDT Appointment [facility] [address] [place] [address] Lai Garcia MD [address] [place] [address] Health Maintenance Due Date Last Done Comments Colorectal Cancer Screening Colonoscopy (10 Years) 1950 Hepatitis C 1970 DTaP, Tdap and Td Vaccines (1 - Tdap) 1971 Mammogram Screening 1992 Zoster Vaccines (1 of 2) 2002 Annual Medicare Wellness Visit 2017 Dexa Scan (General) 2017 Pneumococcal Vaccine: 65+ Years (1 of 1 - PCV) 2017 PHQ-2 (Physician [place]) 09/06/2024 COVID-19 Vaccine ( season) 2024 05/24/2024, [...] this topic Insurance MEDICARE AET[employer] Care Teams Helmet Coverer Relationship Specialty Start Date End Date Curtis Alatorre MD [address] [place] [address] PCP - General 09/23/24
[2024-12-14 13:17] LABS: Ionized Calcium 5.2 mg/dL (4.7-5.5)
== END 2024-12-12 12:44 | disposition home or self-care (01) ==
PROVIDERS: PCP Family Medicine; Visit Provider Internal Medicine
DX: E21.0 Primary hyperparathyroidism (principal); M81.0 Age-related osteoporosis without current pathological fracture; R79.89 Other specified abnormal findings of blood chemistry; Z90.89 Acquired absence of other organs; Z98.890 Other specified postprocedural states
CPT/HCPCS: 36415; 82040; 82310; 82330

== ENCOUNTER 2025-02-28 09:47 | Outpatient (CLI) | payer MEDICARE, SELFPAY ==
[2025-02-28 10:38] LABS: Alanine Aminotransferase 22 U/L (6-35); Albumin Level 4.6 g/dL (3.5-5.1); Alkaline Phosphatase 76 U/L (38-126); Anion Gap 9 mmol/L (4-12); Aspartate Amino Transferase 30 U/L (14-36); Bilirubin,Total 0.6 mg/dL (0.2-1.3); Blood Urea Nitrogen 13 mg/dL (7-17); Calcium 9.3 mg/dL (8.4-10.2); Carbon Dioxide 24 mmol/L (22-30); Chloride 106 mmol/L (98-107); Estimated Glomerular Filt Rate > 60; Glucose 94 mg/dL (65-110); Magnesium 1.8 mg/dL (1.6-2.3); Potassium 3.9 mmol/L (3.4-5.0); Sodium 139 mmol/L (137-145); Total Protein 7.7 g/dL (6.3-8.2)
[2025-02-28 10:50] LABS: Parathyroid Intact 22.2 pg/mL (14.5-75.2)
[2025-02-28 11:14] LABS: Free T4 Free Thyroxine 1.03 ng/dL (0.78-2.19); Vitamin D 25 Hydroxy 51.8 ng/mL
== END 2025-02-28 09:48 | disposition home or self-care (01) ==
PROVIDERS: PCP Family Medicine; Visit Provider Internal Medicine
DX: E03.9 Hypothyroidism, unspecified (principal); E21.0 Primary hyperparathyroidism; R79.89 Other specified abnormal findings of blood chemistry; M81.0 Age-related osteoporosis without current pathological fracture; E78.2 Mixed hyperlipidemia; I10 Essential (primary) hypertension; Z90.89 Acquired absence of other organs; Z98.890 Other specified postprocedural states
CPT/HCPCS: 36415; 80053; 82306; 82330; 83735; 83970; 84100; 84439; 84443

== ENCOUNTER 2025-03-06 09:15 | Outpatient (CLI) | payer MEDICARE, SELFPAY ==
--- OUTSIDE RECORDS SUMMARY | 2025-03-06 09:22 | XMS_ITS | Clinical Summary ---
Author Organization [facility] Address [address] [place] [address] Care Team Providers Care [place] Tribunal Member Name Role Phone Curtis Alatorre MD Primary Care Provider [phone] Source Comments [facility],non-owned Affiliates and Associated Physician Practices is amultiple site organization consisting of ambulatory clinics and hospital sitesin [place], [place], [place] and [place]. This disclosure is being madepursuant to the Care Everywhere program and may not contain all information available regarding this patient. Last updated 18.[facility] Allergies Active Allergy Reactions Criticality Noted Date Comments Penicillins Skin Reactions,Swelling,Urticaria High 0 09/06/1974 Medications * Be aware that medications may not be up to date on this document. Alwaysverify current medications with the patient. levothyroxine (Synthroid) 25 MCG tablet Take 1 (one) tablet by mouth once daily 4 Active rosuvastatin (Crestor) 20 MG tablet Take 1 (one) tablet by mouth once daily 4 Active umeclidinium-v ilanterol (Anoro Ellipta) 62.5-25 MCG/ACT inhaler Inhale 1 (one) puff by mouth as directed 0 Active valsartan (Diovan) 160 MG tablet Take 1 (one) tablet by mouth once daily 4 Active albuterol HFA (Proventil; Ventolin; Proair) 108 (90 Base) MCG/ACT inhaler Inhale 2 (two) puffs by mouth every 4 hours as needed for Shortness of Breath 4 Active acetaminophen (Tylenol) 325 MG tablet Take [...] Date Diagnosed Date Primary hyperparathyroidism 12/15/2023 Immunizations Immunization Administration Dates Next Due INFLUENZA VACCINE, ADJUVANTE [...] Smoking Tobacco: Former Cigarettes 0.5 40 1 1 - 2020 Smokeless Tobacco: Never Tobacco Cessation:Counseling Given: Not Answered Alcohol Use Standard Drinks/Week Comments Not Currently 0 (1 standard drink = 0.6 oz pur e alcohol) AUDIT-C Answer Date Recorded Q1: How often do you have a drink containing alc ohol? Never 01/20/2024 Average Number of Drinks Not on file 024 Frequency of Binge Drinking Not on file 01/04 Comments Unknown Sex and Gender Information Value Date Recorded Sex Assigned at Not on file Legal Sex Female 9:24 AM CDT Gender Identity Not on file Sexual Orientation [...] 9:49 AM CDT Height 165.1 cm (5' 5) 05/19/2024 9:49 AM CDT Body Mass Index [...] VACCINE (1 of 2) 2002 COVID-19 VACCINE ( - season) 2024 06/14/2023, 05/20/2022, 07/01/2021, Additional history exists DEPRESSION SCREENING 09/06/2024 INFLUENZA VACCINE (Season Ended) 2025 06/14/2023, 05/20/2022, 05/19/2021, Additional history exists Respiratory Syncytial Virus (RSV) Vaccine Pt: or [...] to complete this topic Insurance MEDICARE AETNA MEDICARE Advance Directives Documents on File Type Date Recorded Patient Temporary Data Entry Clerk Expl anation Adv Directive/Living Will/POA 01/20/2024 POA Care Teams [place] Tribunal Member Relationship Specialty Start Date End Date Cutris Alatorre MD [address] [place] [address] PCP - General 04/29/22
[2025-03-06 10:10] LABS: Total Volume 24 Hour Urine 2200 ml
[2025-03-07 07:12] LABS: Creatinine 24 Hour Urine 0.9 gm/24 (0.8-1.8)
== END 2025-03-06 09:16 | disposition home or self-care (01) ==
LOC: ANHLAB 09:16
PROVIDERS: PCP Family Medicine; Visit Provider Internal Medicine
DX: E21.0 Primary hyperparathyroidism (principal); R79.89 Other specified abnormal findings of blood chemistry; M81.0 Age-related osteoporosis without current pathological fracture; E03.9 Hypothyroidism, unspecified; E78.2 Mixed hyperlipidemia; I10 Essential (primary) hypertension; Z90.89 Acquired absence of other organs; Z98.890 Other specified postprocedural states
CPT/HCPCS: 81050; 82340; 82570

== ENCOUNTER 2025-08-10 12:54 | Outpatient (CLI) | payer MEDICARE, SELFPAY ==
--- NOTE | ~2025-08-10 | DEXA_ITS ---
Bone Density Report Name: WILBUR TRINIDAD Age: 74 Sex: Female Ethnicity: White Date of : 1950 Indication: hyperparathyroidism; parental hip fracture; height loss; asthma or emphysema; secondary osteoporosis; Referring Provider: FRANCESCA PUTNAM Study: Bone densitometry was performed. Exam Date: August 10, 2025 Accession number: [id number] Bone Density: Region BMD T-score Z-score Classification AP Spine(L1-L4) 0.763 -2.6 -0.3 Osteoporosis Femoral Neck (Left) 0.606 -2.2 -0.2 Osteopenia Total Hip (Left) 0.761 -1.5 0.2 Osteopenia Femoral Neck (Right) 0.732 -1.1 0.9 Osteopenia Total Hip (Right) 0.730 -1.7 -0.1 Osteopenia Total Hip Mean 0.746 -1.6 0.1 Osteopenia World Health Organization criteria for BMD impression classify patients as: Normal (T-score at or above -1.0), Osteopenia (T-score between -1.0 and -2.5), or Osteoporosis (T-score at or below -2.5). 10-year Fracture Risk: FRAX not reported because: Some T-score for Spine Total or Hip Total or Femoral Neck at or below -2.5 Treated for osteoporosis Clinical Information Provided by Patient: Parent has had a hip fracture Has secondary osteoporosis Is being treated for osteoporosis Has used the following medications: Fosamax (i.e. alendronate), Vitamin D, Calcium, evenity Has the following medical conditions: Asthma or Emphysema, Hyperparathyroidism Patient maximum height was 65.5 Menopause Age: 52 No regular weight bearing exercise Drinks caffeinated beverages Onset of menses at age 14 Number of children 3 Impression: The patient has osteoporosis, based on the Total Spine T-score. The patient has risk factors, including: parental hip fracture. Discussion: It is important to ask patients whether they are taking their medications and to encourage continued and appropriate compliance with their osteoporosis therapies to reduce fracture risk. It is also important to review their risk factors and encourage appropriate calcium and vitamin D intakes, exercise, fall prevention and other lifestyle measures. Follow-Up: Consider a repeat BMD and Vertebral Fracture Assessment (VFA) exam in 2 years or sooner if medically necessary, to reassess this patient's status. Reported by: J CARLOS on 08/10/2025 1:43:00 PM. Reviewed, dictated and finalized at location A.
== END 2025-08-10 12:55 | disposition home or self-care (01) ==
LOC: ANHFOHIMG 12:55
PROVIDERS: PCP Family Medicine; Visit Provider Internal Medicine
DX: M81.0 Age-related osteoporosis without current pathological fracture (principal); M85.89 Other specified disorders of bone density and structure, multiple sites
CPT/HCPCS: 77080